=== PATIENT | female | born 1970 | race Caucasian/White ===

== ENCOUNTER → 2022-02-02 | Day surgery (SDC) | payer OTHER ==
[~2022-02-02] MED LIST: ALENDRONATE SOD70 MG PO; BUPIVACAINE 0.5%/EPI 30 ML SDV INJ ONE; BUPIVACAINE HCL 0.25% 10ML MPF VIAL INJ ONE; BUPIVACAINE LIPOSOME/PF 266 MG/20 ML IJ ONE; CEFAZOLIN SODIUM 2 GM ONE; DEXAMETHASONE SOD PHOS INJ 4 MG/ML SDV ONE; EPHEDRINE SULFATE INJ 50 MG/ML VIAL ONE; EPINEPHRINE HCL 1:1000 1ML 1 MG/ML AMP ONE; FENTANYL CITRATE/PF 100MCG/2 ML INJ ONE; GABAPENTIN300 MG PO; KETOROLAC TROMETHAMINE 30 MG/ML VIAL ONE; LIDOCAINE HCL 2% LOCAL INJ 5 ML SDV VIAL INJ ONE; MIDAZOLAM HCL 2 MG/2 ML VIAL ONE; MULTI-VITAMIN1 EACH PO; OMEPRAZOLE40 MG PO; ONDANSETRON HCL INJ 2MG/ML 2ML 2 MG/ML VIAL ONE; PROPOFOL IV EMULSION 10 MG/ML 20 ML VIAL ONE; SEVOFLURANE INHAL SOLN 250 ML PEN BTL ONE; VITAMIN D3 COM1 EACH PO
[2022-02-02 14:15] VITALS: BP 120/73
== END | disposition home or self-care (01) ==
LOC: OR 10:00
PROVIDERS: ATTEND Podiatrist Foot & Ankle Surgery
DX: S92.022A Displaced fracture of anterior process of left calcaneus, initial encounter for closed fracture (principal); M25.872 Other specified joint disorders, left ankle and foot; M77.52 Other enthesopathy of left foot and ankle; K21.9 Gastro-esophageal reflux disease without esophagitis; D64.9 Anemia, unspecified; X58.XXXA Exposure to other specified factors, initial encounter
CPT/HCPCS: 28120; 29897; 93005; C9290; J0171; J1100; J1885; J2001; J2250; J2405; J2704; J3010; Q4152; 76000